=== PATIENT | female | born 1995 ===

== ENCOUNTER 2020-05-14 15:46 | Inpatient (IN) | payer BC, SELFPAY ==
[2020-05-14] VITALS (12 sets, daily range): BP systolic 102–121; BP diastolic 53–84; PULSE 87–98; TEMP 36.4–36.9; BMI 38.0
[2020-05-14 17:01] LABS: Basophils Percent Auto 0.3 % (0.2-1.2); Eosinophils Percent Auto 0.4 % (0-4.4); Hematocrit 32.7 % (37.0-47.0); Immature Granulocyte Absolute 0.03 K/mm3 (0.00-0.031); Immature Granulocyte Percent A 0.4 % (0-0.5); Lymphocytes Absolute Auto 1.26 K/mm3 (0.9-3.2); Lymphocytes Percent Auto 17.1 % (18.3-44.2); Mean Corpuscular HGB Conc 33.6 g/dl (32-36); Mean Corpuscular Hemoglobin 30.9 pg (26-34); Mean Corpuscular Volume 91.9 fl (80-100); Mean Platelet Volume 9.1 fl (7.4-10.4); Monocytes Absolute Auto 0.4 K/mm3 (0.1-0.6); Monocytes Percent Auto 5.4 % (2.6-8.5); Neutrophils Absolute Auto 5.6 K/mm3 (1.3-6.7); Neutrophils Percent Auto 76.4 % (45.5-73.1); Platelet Count Result 156 k/mm3 (150-375); Red Blood Count 3.56 M/mm3 (4.2-5.4); Red Cell Distribution Width 13.7 % (11.5-14.5); White Blood Count 7.4 K/mm3 (4.5-10.0)
[2020-05-14] MEDS: DINOPROSTONE 10 MG VAG INSERT VAGINAL (17:16)
--- NOTE | 2020-05-14 17:18 | WPDANESEPP ---
Anes - Eval Pre Procedure Procedure: Labor epidural Date/Time: 05/14/20 17:18 Surgeon: Timmy Preop Diagnosis: pain during labor Pre Op Diagnosis: Induction of Labor Patient Data Age: 24 Gender: F Height: Weight: Last Vital Signs Pulse 91 05/14/20 17:16 BP 115/67 05/14/20 17:16 Allergies Allergy/AdvReac Type Severity Reaction Status Date / Time No Known Allergies Allergy Unknown Verified 04/17/20 13:42 Home Medications Medication Instructions Recorded Confirmed Type esomeprazole magnesium [Nexium] 40 mg PO DAILY 04/17/20 04/17/20 History ferrous sulfate 325 mg PO BID 04/17/20 04/17/20 History folic acid 1 mg PO DAILY 04/17/20 04/17/20 History magnesium 400 mg PO DAILY 04/17/20 04/17/20 History omega-3 fatty acids [Fish Oil] PO 04/17/20 History -oynt fum-folic ac-om3 pkg PO 04/17/20 History [One A Day Women's DHA] Laboratory Tests 05/14/20 05/14/20 16:31 16:31 WBC 7.4 K/mm3 K/mm3 (4.5-10.0) RBC 3.56 M/mm3 L M/mm3 (4.2-5.4) Hgb 11.0 g/dL L g/dL (12.0-15.0) Hct 32.7 % L % (37.0-47.0) MCV 91.9 fl fl (80-100) MCH 30.9 pg pg (26-34) MCHC 33.6 g/dl g/dl (32-36) RDW 13.7 % % (11.5-14.5) Plt Count 156 k/mm3 k/mm3 (150-375) MPV 9.1 fl fl (7.4-10.4) Immature Gran % (Auto) 0.4 % % (0-0.5) Neut % (Auto) 76.4 % H % (45.5-73.1) Lymph % (Auto) 17.1 % L % (18.3-44.2) [place] % (Auto) 5.4 % % (2.6-8.5) Eos % (Auto) 0.4 % % (0-4.4) Baso % (Auto) 0.3 % % (0.2-1.2) Lymph # (Auto) 1.26 K/mm3 K/mm3 (0.9-3.2) [place] # (Auto) 0.4 K/mm3 K/mm3 (0.1-0.6) Eos # (Auto) 0.0 K/mm3 K/mm3 (0-0.3) Baso # (Auto) 0.0 K/mm3 K/mm3 (0.0-0.1) Abs Immat Gran (auto) 0.03 K/mm3 K/mm3 (0.00-0.031) Absolute Neuts (auto) 5.6 K/mm3 K/mm3 (1.3-6.7) Absolute Nucleated RBC 0.0 K/mm3 K/mm3 (0.0-0.012) Nucleated RBC % 0.0 % % (0.0-0.2) RPR Pending Patient hx anesthesia problems: none Family hx anesthesia problems: none PMFSH Past Medical History Medical History (Updated 05/14/20 @ 17:21 by Erika Faith CRNA) Anemia GERD (gastroesophageal reflux disease) IUP (intrauterine ), incidental Family History Family History (Updated 04/17/20 @ 13:50 by Vijay Manning RN) Father Skin cancer (melanoma) Grandparent Skin cancer (melanoma) Social History Social History Substance use: never Spiritual care concerns: No Exam Day of Procedure 05/14/20 17:18
--- NOTE | 2020-05-14 17:33 | LDADM ---
This patient, Ryanne Wilson, was admitted to Labor/Delivery/Recovery 106 on 05/14/20 at 15:46. Plans for labor, pain management and were discussed with patient. Patient/family oriented to hospital policies and general routines including ID bracelet, bed and alarms, visiting hours, pain management, procedures, bathroom and other care routines, personal items, smoking policy, room service/diet and guest tray routines, security routines, and visiting hours. Patient/Family are encouraged to report perceived risks to care and to ask questions if they do not understand what they are told or what they should do. See OBIX for further documentation.
--- NOTE | 2020-05-14 19:06 | PM.IMHP ---
H&P: HPI History of Present Illness Date/Time: 05/14/20 19:06 Chief complaint: Induction of Labor Narrative: Ryanne Wilson is a 24 yo @ 39.5wks who presents for elective IOL. She reports good movement. Occasional contraction. No VB or LOF. Her is complicated by: - PCOS; ovulation induction resulted in this - GERD- on nexium, pepcid and reglan - Rubella non-immune - Mild anemia on iron Review of Systems Constitutional: Constitutional: Denies body ache(s) and Denies fever(s) Eyes: Eyes: Denies blurry vision ENT: Denies nasal congestion Cardiovascular: Cardiovascular: Denies chest pain and Denies palpitations Respiratory: Respiratory: Denies cough and Denies dyspnea Gastrointestinal: Gastrointestinal: Denies abdominal pain, Denies nausea and Denies vomiting Genitourinary: Genitourinary: Denies vaginal discharge Neurologic: Denies dizziness and Denies headache(s) Psychiatric: Psychiatric: Denies anxiety and Denies depression [facility] Past Medical History Medical History Anemia GERD (gastroesophageal reflux disease) IUP (intrauterine ), incidental Family History Family History Father Skin cancer (melanoma) Grandparent Skin cancer (melanoma) Social History Social History Smoking status: Never smoker Substance use: never Spiritual care concerns: No Meds Home Medications and Allergies Home Medications Medication Instructions Recorded Confirmed Type esomeprazole magnesium [Nexium] 40 mg PO DAILY 04/17/20 04/17/20 History ferrous sulfate 325 mg PO BID 04/17/20 04/17/20 History folic acid 1 mg PO DAILY 04/17/20 04/17/20 History magnesium 400 mg PO DAILY 04/17/20 04/17/20 History omega-3 fatty acids [Fish Oil] PO 04/17/20 History [id number] fum-folic ac-om3 pkg PO 04/17/20 History [One A Day Women's DHA] Allergies Allergy/AdvReac Type Severity Reaction Status Date / Time No Known Allergies Allergy Unknown Verified 04/17/20 13:42 Vital Signs Vital Signs - 24 hr 05/14/20 16:35 05/14/20 17:01 05/14/20 17:16 Temperature 36.9 C Pulse Rate 93 91 Blood Pressure 105/65 115/67 05/14/20 17:31 05/14/20 17:46 05/14/20 18:01 Temperature Pulse Rate 87 91 97 Blood Pressure 107/70 117/72 110/72 05/14/20 18:16 05/14/20 18:31 05/14/20 18:46 Temperature Pulse Rate 88 89 98 Blood Pressure 114/74 114/74 112/84 05/14/20 19:01 Temperature Pulse Rate 89 Blood Pressure 121/82 Exam Const: General: cooperative, healthy appearing, comfortable and no acute distress Orientation/consciousness: patient oriented x3 Resp: Effort & Inspection: normal respiratory effort and able to speak in complete sentences Cardio: Rate: regular rate : Other: FHT's: 130's/ mod laurita/ + accels/ no decels - cat 1 TOCO: irregular ctx's Cervix 1/50-2 Membranes: intact Position: cephalic Skin: General skin exam: normal color Psych: Appearance: grossly normal Affect: normal affect Attitude: cooperative H&P: Results Labs Labs: Short CBC 05/14/20 Range/Units 16:31 WBC 7.4 (4.5-10.0) K/mm3 Hgb 11.0 L (12.0-15.0) g/dL Hct 32.7 L (37.0-47.0) % Plt Count 156 (150-375) k/mm3 Assessment and Plan Assessment and plan (1) Encounter for elective induction of labor: Code(s): Z34.90 - Encounter for supervision of normal , unspecified, unspecified trimester Status: Acute Additional Plan - Admit to L&D for elective IOL with Cervidil - Continuous monitoring; category 1 - Cervidil placed @ 1715 - Labs/US reviewed; GBS negative - Anesthesia consult PRN pain
--- NOTE | 2020-05-14 19:20 | WPDHPUPDATE1 ---
History and Physical Update Update Date/Time: 05/14/20 19:20 History and Physical has been reviewed, including an updated exam of the patient. There are NO changes in the patient's condition. Risks, benefits, and alternatives have been discussed and questions answered. Patient agrees to proceed with procedure.
[2020-05-15] VITALS (258 sets, daily range): BP systolic 68–136; BP diastolic 26–94; PULSE 25–151; RESP 16–20; TEMP 36.3–37.1; O2SAT 70–100; BMI 38.0
[2020-05-15] MEDS: fentaNYL CITRATE INJ (*CRX) 100 MCG/2 ML VIAL 50 MCG IV PUSH (00:54)
[2020-05-15] MEDS: OXYTOCIN 30 UNITS/NS 500 ML 30 UNITS/500 ML BAG IV CONT (01:46)
[2020-05-15] MEDS: LACTATED RINGERS 1,000 ML 125 ML IV CONT ×4 (01:47→18:26)
[2020-05-15] MEDS: fentaNYL CITRATE INJ (*CRX) 100 MCG/2 ML VIAL IV PUSH (04:03)
--- NOTE | 2020-05-15 06:06 | WPDANESEPP ---
Anes - Eval Pre Procedure Procedure: Labor epidural Date/Time: 05/15/20 06:06 Surgeon: Timmy Preop Diagnosis: pain during labor Pre Op Diagnosis: Induction of Labor Patient Data Age: 24 Gender: F Height: 1.6 m Weight: 97.5 kg Last Vital Signs Temp 36.7 C 05/15/20 05:38 Pulse 93 05/15/20 06:04 BP 89/40 L 05/15/20 06:04 Pulse Ox 99 05/15/20 06:02 Allergies Allergy/AdvReac Type Severity Reaction Status Date / Time No Known Allergies Allergy Unknown Verified 04/17/20 13:42 Home Medications Medication Instructions Recorded Confirmed Type esomeprazole magnesium [Nexium] 40 mg PO DAILY 04/17/20 04/17/20 History ferrous sulfate 325 mg PO BID 04/17/20 04/17/20 History folic acid 1 mg PO DAILY 04/17/20 04/17/20 History magnesium 400 mg PO DAILY 04/17/20 04/17/20 History omega-3 fatty acids [Fish Oil] PO 04/17/20 History [id number] fum-folic ac-om3 pkg PO 04/17/20 History [One A Day Women's DHA] Laboratory Tests 05/14/20 05/14/20 05/14/20 16:31 16:31 16:31 WBC 7.4 K/mm3 K/mm3 (4.5-10.0) RBC 3.56 M/mm3 L M/mm3 (4.2-5.4) Hgb 11.0 g/dL L g/dL (12.0-15.0) Hct 32.7 % L % (37.0-47.0) MCV 91.9 fl fl (80-100) MCH 30.9 pg pg (26-34) MCHC 33.6 g/dl g/dl (32-36) RDW 13.7 % % (11.5-14.5) Plt Count 156 k/mm3 k/mm3 (150-375) MPV 9.1 fl fl (7.4-10.4) Immature Gran % (Auto) 0.4 % % (0-0.5) Neut % (Auto) 76.4 % H % (45.5-73.1) Lymph % (Auto) 17.1 % L % (18.3-44.2) [place] % (Auto) 5.4 % % (2.6-8.5) Eos % (Auto) 0.4 % % (0-4.4) Baso % (Auto) 0.3 % % (0.2-1.2) Lymph # (Auto) 1.26 K/mm3 K/mm3 (0.9-3.2) [place] # (Auto) 0.4 K/mm3 K/mm3 (0.1-0.6) Eos # (Auto) 0.0 K/mm3 K/mm3 (0-0.3) Baso # (Auto) 0.0 K/mm3 K/mm3 (0.0-0.1) Abs Immat Gran (auto) 0.03 K/mm3 K/mm3 (0.00-0.031) Absolute Neuts (auto) 5.6 K/mm3 K/mm3 (1.3-6.7) Absolute Nucleated RBC 0.0 K/mm3 K/mm3 (0.0-0.012) Nucleated RBC % 0.0 % % (0.0-0.2) RPR Pending Blood Type O Positive Antibody Screen Negative Patient hx anesthesia problems: none Family hx anesthesia problems: none PMFSH Past Medical History Medical History Anemia GERD (gastroesophageal reflux disease) IUP (intrauterine ), incidental Family History Family History Father Skin cancer (melanoma) Grandparent Skin cancer (melanoma) Social History Social History Smoking status: Never smoker Substance use: never Spiritual care concerns: No Exam Day of Procedure 05/15/20 06:06
[2020-05-15] MEDS: ONDANSETRON INJ 4 MG/2 ML VIAL IV PUSH ×2 (06:40→18:05)
[2020-05-15 10:53] LABS: Rapid Plasma Reagin Non-Reactive (NonReactive)
--- NOTE | 2020-05-15 11:56 | PM.OBPNLAB ---
Pain Control Date/time seen: 05/15/20 11:56 Pain control: epidural (working well) Pelvic Exam Dilation (cm): 3 (.5) Effacement (%): 70 station: -2 Amniotic membrane status: Ruptured (clear, @ 1145) Contractions Monitor mode: External Contraction frequency: 3 Contraction pattern: Regular Status status: Category l Comments: 130's/ mod laurita/ + accels/ no decels Assessment and Plan Pitocin rate (mU/min): 14 Assessment: induction ongoing Plan: continuous present management
--- NOTE | 2020-05-15 17:30 | PM.OBPNLAB ---
Pain Control Date/time seen: 05/15/20 17:30 Pain control: epidural (not working well; anesthesia called) Pelvic Exam Dilation (cm): 7 (.5) Effacement (%): 80 station: 0 Amniotic membrane status: Ruptured (clear, @ 1145) Contractions Monitor mode: External Contraction frequency: 3 Contraction pattern: Regular Status status: Category l Assessment and Plan Assessment: active labor Plan: continuous present management
--- NOTE | 2020-05-15 21:10 | PM.OBPRVD ---
OB - Delivery Note Procedure Delivery date: 05/15/20 Procedure: Patient progressed to complete dilation and began pushing with good effort. She pushed for approximately 1 hour and reported exhaustion and severe pain. Patient was counseled on tight vaginal introitus which can normally be stretched with the head. However patient was very uncomfortable and desired delivery immediately. She was counseled for small episiotomy and agreed. A small right medial lateral episiotomy was made and with 2 additional contractions the head was delivered. The shoulders and body delivered without complications. The infant had spontaneous cry and was immediately placed skin to skin. The umbilical cord was then clamped and cut. A segment of the cord was then collected for cord gases and the remaining blood was collected for typing. With Pitocin running and gentle downward traction on the umbilical cord the placenta delivered without complications. Bleeding was noted and a bimanual massage was performed with good tone noted. The cervix vagina and perineum were then examined. The RML episiotomy was noted to be a second-degree perineal laceration and was repaired in the normal fashion using 2 0 Vicryl. Minimal bleeding was noted as well as good uterine tone. Mom and baby were left bonding in the birthing suite in a stable condition. Sponge, lap, needle, instrument counts were correct at the end of the procedure. events: Labor Induction Induction method: per cervidil protocol Delivery augmentation: rupture of membranes and pitocin Delivery monitor: external FHT and external uterine Route of delivery: Episiotomy description: Right Mediolateral Laceration Description: Perineal - 2nd Degree Delivery repair: vicryl Specimen: No Estimated blood loss (mL): 100 Anesthesia type: Epidural Disposition: floor Baby Date of : 05/15/20 Time of : 20:46 Weeks of gestation at delivery: 39 gender: Female Weight (pounds): 6 Weight (ounces): 15 presentation: vertex position: Left Occiput Anterior Placenta delivery description: Expressed cord vessel description: 3 Vessels score one minute: 8 score five minutes: 9
[2020-05-15] MEDS: OXYTOCIN 30 UNITS/NS 500 ML 30 UNITS/500 ML BAG 125 UNITS IV CONT (21:40)
[2020-05-15] MEDS: IBUPROFEN 600 MG TABLET PO (21:40)
[2020-05-15] MEDS: BENZOCAINE 20% AER SPR (*SP) 56 GM CAN 1 SPRAY TOPICAL (22:09)
[2020-05-15] MEDS: WITCH HAZEL 40 PADS 1 PAD TOPICAL (22:09)
[2020-05-16] VITALS: BP 117/66; PULSE 61; RESP 16; TEMP 36.4
[2020-05-16] MEDS: IBUPROFEN 600 MG TABLET PO ×3 (04:40→22:05)
[2020-05-16 05:33] LABS: Hematocrit 30.7 % (37.0-47.0); Hemoglobin 10.2 g/dL (12.0-15.0)
[2020-05-16 08:00] VITALS: BP 117/80; PULSE 61; PULSE 67; RESP 16; RESP 20; TEMP 36.4; O2SAT 100
[2020-05-16] MEDS: DOCUSATE SODIUM 100 MG CAPSULE PO ×2 (08:43→15:33)
[2020-05-16] MEDS: MULTIVIT/MIN/PREN/FOL AC/IRON TABLET 1 TAB PO (08:43)
--- NOTE | 2020-05-16 09:45 | PC.NURSE ---
Consulted with patient, mother reports she is using the nipple shield for all feedings. has difficulties latching and maintaining latch. Discussed shield use and how it may assist with latch and maintaining latch. Discussed nipple shield precautions and possible complications. Instructions given on application and cleaning of shield. Discussed the need to initiate pumping if continues to nurse with the shield. Suggested to attempt first without shield and reviewed weaning techniques. Patient verbalizes understanding. Infant tends to suck her tongue and not allow for deep latch. Reviewed feeding cues, frequencies, duration of feedings, feeding elimination flow sheet, and signs of adequate intake. Demonstrated stimulation techniques to wake infant for feeding. Assisted with infant to breast. Reviewed positioning/alignment in cross cradle, holding breast in U hold and guided asymmetrical latch on. Several attempts before infant was able to latch correctly without shield. nursed eagerly, with steady draws and frequent swallowing noted. Reviewed signs of a correct latch, effective nursing and suck swallow ratio. was able to maintain latch without discomfort to mother. Nipple care reviewed. Suggested mother stimulate while feeding to keep nursing effectively and to assist with maintaining deep latch. Demonstrated how to adjust latch more deeply while feeding. Instructed mother to call out for RN assistance if she is unable to latch infant for feeding or she has discomfort with nursing. Instructed feeding should be initiated three hours from start of last feeding or if feeding cues are noted before. Mother voiced understanding of information shared.
--- NOTE | 2020-05-16 10:02 | WPDANLDPN2 ---
Anes-Prog Note L&D Date/Time: 05/16/20 10:02 Comfortable throughout: labor and delivery Neuraxial method: epidural Epidural/Spinal procedure site: clean & non-tender Neuro status: Neuro function grossly intact. Cardiovascular status: normal Respiratory status: normal Airway patency: baseline Mental status: baseline Post-Op hydration status: normal Vital Signs: Last Vital Signs Temp 36.4 C 05/16/20 00:00 Pulse 61 05/16/20 00:00 Resp 16 05/16/20 00:00 BP 117/66 05/16/20 00:00 Pulse Ox 100 05/15/20 20:46 Pain score (VAS): 0 I/O: Intake & Output 05/15/20 05/16/20 05/16/20 23:59 07:59 15:59 Intake Total 1500 Output Total 51 Balance 1500 -51 Post-procedural complaints: none Patient feedback: Patient satisfied with anesthetic care.
[2020-05-16] MEDS: WITCH HAZEL 40 PADS 1 PAD TOPICAL (11:47)
[2020-05-16] MEDS: BENZOCAINE 20% AER SPR (*SP) 56 GM CAN 1 SPRAY TOPICAL (11:47)
[2020-05-16] MEDS: PANTOPRAZOLE 40 MG TABLET PO (11:48)
[2020-05-16] MEDS: MEASLES,MUMPS,RUBELLA VACCINE 0.5 ML VIAL SUB-Q (11:49)
--- NOTE | 2020-05-16 13:05 | PM.OBPNVD ---
OB - PN: Subj Subjective Date/time seen: 05/16/20 13:05 PPD#1 Ryanne reports doing well today. Her pain is controlled w/ PO meds. She is tolerating regular diet. She has ambulated w/o symptoms of anemia. She is voiding spontaneously and passing flatus. Her bleeding is light. She is breast feeding. No N/V, fever, chills, CP, SOB, MEZA, vision changes, dizziness or palpitations. She would like to go home tomorrow. OB - PN: Obj Data Labs CBC & Chem 7: 05/16/20 04:43 Labs: Laboratory Results - last 24 hr 05/16/20 04:43 Hgb 10.2 L Hct 30.7 L OB - PN A/P Assessment and Plan (1) Normal vaginal delivery of first : Code(s): O80 - Encounter for full-term uncomplicated delivery Status: Acute Plan day: 1 Plan: routine care and discharge home (tomorrow) Comments: - pelvic rest, take meds as prescribed - Return precautions discussed: fever, abd pain/n/v, bleeding, HTN - F/u in 4wks in clinic, call clinic if any issues arise Time Spent With Patient Time: Total time spent is greater than 50% in coordination of care (as documented) at patient's floor/unit and/or counseling patient: Review of Systems Review of Systems: All systems reviewed & are unremarkable except as noted in HPI and below (HPI) Exam Const: General: cooperative, healthy appearing, comfortable and no acute distress Resp: Effort & Inspection: normal respiratory effort Auscultation: clear to auscultation bilaterally Cardio: Rate: regular rate GI: Inspection: normal to inspection and non-distended GI Palp: No abdominal tenderness and Yes Soft to palpation Auscultation: normal bowel sounds : Other: fundus firm below umbilicus, normal lochia Skin: General skin exam: normal color Neuro: General: patient oriented x3 Psych: Appearance: grossly normal Affect: normal affect Attitude: cooperative
[2020-05-16] MEDS: ACETAMINOPHEN 325 MG TABLET 650 MG PO (15:33)
[2020-05-16 16:00] VITALS: BP 117/80; PULSE 67; RESP 20; TEMP 36.4; O2SAT 100
[2020-05-16 20:30] VITALS: BP 110/61; PULSE 65; RESP 16; TEMP 36.6
[2020-05-17 08:25] VITALS: BP 114/69; PULSE 68; RESP 18; TEMP 36.9; O2SAT 99
[2020-05-17 08:52] VITALS: PULSE 68; RESP 18; O2SAT 99
--- NOTE | 2020-05-17 08:52 | PC.NURSE ---
PT introductions made and plan of care discussed per post , pain management, breast feeding, pumping, daily care activities and pending discharge to home. PT verbalized understanding of such care.
[2020-05-17] MEDS: IBUPROFEN 600 MG TABLET PO (09:00)
[2020-05-17] MEDS: PANTOPRAZOLE 40 MG TABLET PO (10:21)
[2020-05-17] MEDS: MULTIVIT/MIN/PREN/FOL AC/IRON TABLET 1 TAB PO (10:21)
[2020-05-17] MEDS: DOCUSATE SODIUM 100 MG CAPSULE PO (10:21)
[2020-05-17] MEDS: ACETAMINOPHEN 325 MG TABLET 650 MG PO (10:21)
--- NOTE | 2020-05-17 11:00 | PC.NURSE ---
Patient viewed the discharge video Mother & Baby Care, The First Two Weeks . Patient was given the opportunity and encouraged to ask questions. Patient verbalized understanding of information shared and has been given the mother/baby guide for home reference.
--- NOTE | 2020-05-17 11:00 | PC.NURSE ---
Consulted with patient,mother reports she is able to latch infant independently with slight pain during feeding. Both nipples are reddened. Mother states she feels infant began with poor latch during the night and pain has increased. Reviewed feeding cues, frequencies, duration of feedings, feeding elimination flow sheet, and signs of adequate intake. Demonstrated stimulation techniques to wake infant for feeding. Assisted with to breast. Reviewed positioning/alignment in cross cradle, holding breast in U hold and guided asymmetrical latch on. Several attempts before infant was able to latch correctly. Mother reports she feels this latch is deeper than previous and has less tenderness. Infant nursed eagerly with steady draws and frequent swallowing noted, followed with pausing. Reviewed signs of a correct latch, effective nursing and suck swallow ratio. Infant was able to maintain latch without discomfort to mother. Nipple care reviewed. Suggested mother stimulate while feeding to keep infant nursing effectively for increased intake and to assist with maintaining deep latch. Demonstrated how to adjust latch more deeply while feeding. Advised to use nipple shield if she is unable to obtain a deep latch without discomfort. Reviewed pumping if she continues to use shield and to supplement if is not feeding or having output as required. Mother will discharge today. Mother is feeding as required and waking to feed if needed. Infant is currently meeting outcomes for weight, output, jaundice and feeding frequencies. Mother states she feels confident to continue with effective at home. Reviewed transition to breast milk, signs of adequate intake, and engorgement/relief. Instructed to call ICP if intake/output less than required. Reviewed regular medications mother is taking. Information provided per Susy. Reviewed community resources on the [facility] website and in the Mom/Baby guide. Information on outpatient services provided. Mother has no further questions at this time.
--- NOTE | 2020-05-17 12:00 | PC.NURSE ---
Pt received discharge instructions per protocol and verbalized understanding of such instructions.
--- NOTE | 2020-05-17 13:40 | PC.NURSE ---
PT discharged to home ambulatory accompanied by spouse and and taken to waiting car. Follow up appts confirmed
--- NOTE | 2020-05-17 13:42 | PM.OBDSVD ---
DS: Admitting Diagnosis Admitting Diagnosis Admitting Diagnosis: Induction of Labor DS: Discharge Diagnosis Discharge Diagnosis (1) Normal vaginal delivery of first : Code(s): O80 - Encounter for full-term uncomplicated delivery Status: Acute OB - DS: Summary OB Procedures : None OB Procedures Intrapartum: Spontaneous Vag Delivery OB Procedures: : Rubella lg Peripartum Data Delivery Method: Natural Vaginal Laceration Description: Perineal - 2nd Degree Episiotomy description: Right Mediolateral complications: none [place] 1: Gender: Female Disposition of : home Status at Discharge Functional status at discharge: independent ambulation Overall status at discharge: patient is back to baseline Time Spent with Patient Time attestation: Total time spent providing and/or coordinating discharge services: Time spent: Less than 30 minutes Exam Const: General: cooperative, healthy appearing, comfortable and no acute distress Resp: Effort & Inspection: normal respiratory effort Auscultation: clear to auscultation bilaterally Cardio: Rate: regular rate GI: Inspection: non-distended GI Palp: No abdominal tenderness and Yes Soft to palpation Auscultation: normal bowel sounds : Other: fundus firm below umbilicus, normal lochia Skin: General skin exam: normal color Neuro: General: patient oriented x3 Extrem: General: normal to inspection Psych: Appearance: grossly normal Affect: normal affect Attitude: cooperative Discharge Plan Discharge Attending physician on discharge: Angélica Warner Discharging Clinician: Angélica Warner Anticipated Discharge Date/Time: 05/17/20 12:00 Patient Disposition: Home, Self-Care Activity: may shower and pelvic rest Diet: regular Discharge Instructions: Education: Mom and Baby Guide Given to: Mother Follow-Up: Call your delivering provider's office for an appointment to be seen in: 3 weeks Mom and baby should come to the [facility] for the follow-up appointment. Appointment Date/Time: May 18, 2020 at 9:00 am What to expect at your follow-up visit: Blood Pressure Check Call [phone] if you are unable to keep your appointment time. BREAST CARE: * Wear a snug supportive bra. * For engorgement discomfort: Breast Feeding: * Apply warm moist washcloths * Express milk as needed to relieve engorgement * Wear loose clothing Bottle Feeding: * May apply ice packs * For sore nipples: * Identify correct latch-on * Apply warm moist washcloths before and after nursing * Air dry nipples after nursing * May apply Lansinoh cream to nipples PERINEAL CARE: * Until bleeding stops, use your nati bottle after urinating * Change your pad frequently throughout the day * You may take sitz baths several times a day (fill your bathtub with warm water and soak for 20 minutes.) Do NOT bathe in the water * No tub baths until seen by your physician - You may shower ACTIVITY: * Rest as much as possible. * Do not exercise or lift anything heavier than your baby (such as laundry or other children.) * Avoid stairs or driving as much as possible. * Do not put anything into the vagina. No douching, tampons, or sexual activity until seen by physician. NOTIFY PHYSICIAN IF YOU HAVE ANY QUESTIONS OR IF ANY OF THE FOLLOWING SYMPTOMS OCCUR: * If your perineum becomes red, swollen, or more painful than what you have experienced in the hospital. * If your vaginal bleeding becomes foul smelling. * If your vaginal bleeding becomes more heavy than a period or if your bleeding changes from pink to bright red. However, you may pass an occasional walnut-sized clot once or twice for the first week . * If you experience a sharp, shooting pain in you calves. * If you discover a hard, reddened
[2020-05-18 09:30] VITALS: BP 120/72; PULSE 81; RESP 20; TEMP 36.7; O2SAT 100
== END 2020-05-17 13:40 | disposition home or self-care (01) | DRG 807 ==
LOC: ANHLDR 15:51 → ANHOB2 05-16 00:30
PROVIDERS: Admitting Provider Obstetrics & Gynecology; Visit Provider Obstetrics & Gynecology
DX: O76 Abnormality in fetal heart rate and rhythm complicating labor and delivery (principal); Z37.0 Single live birth; O70.1 Second degree perineal laceration during delivery; Z3A.39 39 weeks gestation of pregnancy; O99.62 Diseases of the digestive system complicating childbirth; K21.9 Gastro-esophageal reflux disease without esophagitis; O99.02 Anemia complicating childbirth; D64.9 Anemia, unspecified
CPT/HCPCS: 36415; 85014; 85018; 85025; 86592; 86850; 86900; 86901; 90710; A9270; J2405; J2590; J2795; J3010; J7120

== ENCOUNTER 2020-06-13 13:02 | Outpatient (RCR) | payer BC, SELFPAY ==
--- NOTE | 2020-06-14 07:40 | PC.NURSE ---
Addendum entered by Beba Bonner RN 06/14/20 07:58: The recorded visit below was on 06/13/20 at 1300 Original Note: 1300 Mother here for LC appointment; FOB present as well. Mother desires to try to get her baby girl to latch for feedings without the nipple shield. Mother also reports hx of Mastitis infection, involving her L breast, and has just completed her antibiotics. She also saw Dr. Warner in f/u today, prior to coming here. Pt reports a plugged duct on top of her L breast midline, and reports decreased milk flow from this breast. She reports she has had several blocked ducts in different locations on that breast. Parents report doing appropriate measures to resolve the plugged duct....heat, massage, warm showers and pumping. Mother states she has a Spectra Pump. Today, lumpy duct palpated. No redness noted. Mother will continue all of the measures she has been doing to correct the plugged duct. Mother reports she has been pumping the past two days, and has not put to breast. She reports getting about 3-4 ounces from her R breast and 2 ounces from her L, at each pumping session. She did tell nurse that she has been using the nipple shield since baby's . Baby's weight, and output all appropriate. She has had her normal Dr. visits, and plans to see Dr. Del Castillo again on 06/20/20. Mother states that she was not pumping after nursing with the nipple shield, and has only starting pumping in the last two days. Baby awakened for feeding. She was alert and active. Appeared to be well nourished infant. Attempt to put infant to breast on the L side without the nipple shield. Baby cried and fought latch on. Several attempts made. Baby very resistant. Changed to R side; mother put shield to breast, but was not applying it correctly. She was shown how to place it correctly. Mother has easily expressed breast milk. Baby went to breast with shield, appropriate latch and strong suck and frequent swallowing. Baby nursed 8-10 minutes and was very satisfied. Plan: mother will continue persistent efforts to correct the plugged duct. Also watching for return of mastitis symptoms. Will continue to nurse with Nipple shield. Suggested mother can attempt every now and then to try to get infant to nurse without shield, but that baby has been nursing effectively with it, and doing well. Did suggest that mother pump after each breast feeding with the nipple shield, at least a few minutes. Will f/u by phone with pt on 06/14 to measures progress. Pt in agreement with this plan
--- NOTE | 2020-06-14 14:32 | PC.NURSE ---
PC today with pt. She reports baby is nursing on her R side with nipple shield, and no problems. She is not nursing the L side and still reports plugged duct. Mother states she is pumping. Will continue to pump L side since she is not nursing that side. Mother told OK to not pump on R, but if she does, only a few minutes, because her milk supply seems good. Mother agreed. also pt given information about [facility]rap[facility] at [facility] [place] [facility] for Physical Therapy Lymphatic Breast massage. Also suggested with her own breast massage, that she massage the entire breast and stroke toward her nipple but also stroke toward the axilla area. She agreed. Will f/u by phone again tomorrw and or next week.
--- NOTE | 2020-06-15 13:24 | PC.NURSE ---
PC to mother today in f/u; message left asking her to return call. Call received this afternoon. Mother reports she is doing well. She states she is nursing one side and using her [place] on the other side, then next feeding switches. Nurse affirmed her decision to nurse on both breasts. Mother reports seeing an increase in her milk production on her L side, and still seems to have a clogged duct. Mother reports that baby saw Dr. Del Castillo yesterday and baby weighed 9-5, and is doing well. Nurse expressed appreciation that mother returned call and is good to know mother and baby are doing well. Mother will continue methods to correct the plugged duct. Mother encouraged to call again with any further questions or concerns. Mother agreed.
== END 2020-08-09 08:29 | disposition home or self-care (01) ==
LOC: ANHOBOP 13:02
PROVIDERS: Visit Provider Obstetrics & Gynecology
DX: Z39.1 Encounter for care and examination of lactating mother (principal)
CPT/HCPCS: 99202; G0463